=== PATIENT | male | born 1995 | race Caucasian/White ===

== ENCOUNTER 2017-09-14 19:13 | Emergency (ER) | payer BC ==
[2017-09-14 19:33] VITALS: BP 119/69; PULSE 75; O2SAT 96
--- NOTE | 2017-09-14 20:28 | ERPHSYRPT ---
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 He works outdoors on the railroad. The temperature today was in the mid 90s. He tried to drink more water around 1 PM but eventually he was unable to keep it down due to vomiting. He thinks he is significantly dehydrated. His past medical history is unremarkable. Timing/Duration: today, gradual onset, worse Severity: severe Modifying Factors: Improves With: nothing Associated Symptoms: nausea, vomiting, headaches, other (muscle cramps) Allergies/Adverse Reactions: amoxicillin Allergy (Verified 09/14/17 19:34) Home Medications: No Reportable Medications [No Reported Medications] 09/14/17 [History] - Review of Systems Constitutional: No Fever, No Chills Eyes: No Symptoms Ears, Nose, & Throat: No Symptoms Respiratory: No Cough, No Dyspnea Cardiac: No Chest Pain, No Edema, No Syncope Abdominal/Gastrointestinal: Nausea, Vomiting, No Abdominal Pain, No Diarrhea Genitourinary Symptoms: No Dysuria Musculoskeletal: Myalgias, No Back Pain, No Neck Pain Skin: No Rash Neurological: No Dizziness, No Focal Weakness, No Sensory Changes Psychological: No Symptoms Endocrine: No Symptoms Hematologic/Lymphatic: No Symptoms Immunological/Allergic: No Symptoms All Other Systems: Reviewed and Negative - Past Medical History Pertinent Past Medical History: No - Past Surgical History Past Surgical History: No Other Surgical History: mass removed from above left eyebrow, not a cyst, not malignant - Social History Smoking Status: Never smoker Exposure to second hand smoke: Yes (occasionaly) Drug Use: none Patient Lives Alone: No - Nursing Vital Signs Nursing Vital Signs: Initial Vital Signs Temperature 97.9 F 09/14/17 19:22 Pulse Rate 75 09/14/17 19:22 Blood Pressure 119/69 09/14/17 19:22 O2 Sat by Pulse Oximetry 96 09/14/17 19:22 Pain Scale Pain Intensity 6 - Physical Exam General Appearance: mild distress Eye Exam: PERRL/EOMI, eyes nml inspection Ears, Nose, Throat Exam: normal ENT inspection, TMs normal, pharynx normal, moist mucous membranes Neck Exam: normal inspection, non-tender, supple, full range of motion Respiratory Exam: normal breath sounds, lungs clear, No respiratory distress Cardiovascular Exam: regular rate/rhythm, normal heart sounds, normal peripheral pulses Gastrointestinal/Abdomen Exam: soft, normal bowel sounds, No tenderness, No mass Rectal Exam: not done Back Exam: normal inspection, normal range of motion, No CVA tenderness, No vertebral tenderness Extremity Exam: normal inspection, normal range of motion, pelvis stable Neurologic Exam: alert, oriented x 3, cooperative, normal mood/affect, nml cerebellar function, nml station & gait, sensation nml, No motor deficits Skin Exam: normal color, warm, dry, No rash Lymphatic Exam: No adenopathy SpO2 Interpretation: normal SpO2: 96 Oxygen Delivery: Room Air Ordered Tests: Active Orders 24 hr Category Date Time Status IV Insertion STAT Care 09/14/17 20:31 Active BMP Stat Lab 09/14/17 Completed CBC W DIFF Stat Lab 09/14/17 Completed Lactic Acid Stat Lab 09/14/17 20:55 Completed Medication Summary Discontinued Medications Generic Name Dose Route Start Last Admin Trade Name Yazanq PRN Reason Stop Dose Admin Sodium Chloride 1,000 mls @ 999 mls/hr 09/14/17 20:31 09/14/17 22:05 Sodium Chloride 0.9% 1000 Ml IV 09/14/17 21:31 Infused .Q1H1M STA Infusion Sodium Chloride Confirm 09/14/17 20:55 Sodium Chloride 0.9% 1000 Ml Administered 09/14/17 20:56 Dose 1,000 mls @ ud .ROUTE .STK-[facility] ONE Sodium Chloride 1,000 mls @ 999 mls/hr 09/14/17 21:41 09/14/17 23:04 Sodium Chloride 0.9% 1000 Ml IV 09/14/17 22:41 Infused .Q1H1M STA Infusion Sodium Chloride Confirm 09/14/17 21:54 Sodium Chloride 0.9% 1000 Ml Administered 09/14/17 21:55 Dose 1,000 mls @ ud .ROUTE .[facility] ONE Ondansetron HCl 4 mg 09/14/17 20:31 09/14/17 21:01 Zofran 4 Mg/2 Ml Vial IV 09/14/17 20:32 4 mg STAT ONE Administration Ondansetron HCl Confirm 09/14/17 20:55 Zofran 4 Mg/2 Ml Vial Administered 09/14/17 20:56 Dose 4 mg .ROUTE .[facility] ONE Lab/Rad Data: Laboratory Result Diagrams 09/14/17 Unknown 09/14/17 Unknown Laboratory Results 09/14/17 09/14/17 09/14/17 Range/Units Unknown Unknown 20:55 WBC 14.2 H (4.0-10.5) K/mm3 RBC 5.38 (4.1-5.6) M/mm3 Hgb 16.8 (12.5-18.0) gm/dl Hct 45.7 (42-50) % MCV 84.9 (78-100) fl MCH 31.2 (26-32) pg MCHC 36.8 H (32-36) g/dl RDW 12.4 (11.5-14.0) % Plt Count 369 (150-450) K/mm3 MPV 10.2 H (6-9.5) fl Gran % 85.2 H (36.0-66.0) % Eos # (Auto) 0.01 (0-0.5) Absolute Lymphs (auto) 1.12 (1.0-4.6) Absolute Monos (auto) 0.95 (0.0-1.3) Lymphocytes % 7.9 L (24.0-44.0) % Monocytes % 6.7 (0.0-12.0) % Eosinophils % 0.1 (0.00-5.0) % Basophils % 0.1 (0.0-0.4) % Absolute Granulocytes 12.14 H (1.4-6.9) Basophils # 0.02 (0-0.4) Sodium 139 (137-145) mmol/L Potassium 3.9 (3.5-5.1) mmol/L Chloride 91 L (98-107) mmol/L Carbon Dioxide 26 (22-30) mmol/L Anion Gap 26.4 H (5-15) MEQ/L BUN 20 (9-20) mg/dL Creatinine 2.68 H (0.66-1.25) mg/dL Estimated GFR 32.1 ML/MIN Glucose 133 H (74-106) mg/dL Lactic Acid 1.2 (0.4-2.0) Calcium 11.6 H (8.4-10.2) mg/dL Slides for Path Review YES - Progress Progress: improved Counseled pt/family regarding: lab results, diagnosis - Departure Time of Disposition: 23:07 Departure Disposition: Home Clinical Impression: Dehydration, Acute renal failure Condition: Stable Critical Care Time: No Additional Instructions: You have dehydration and acute renal failure. You were given 2 L of IV fluids in the ER. You were also given Zofran 4 mg by IV. If you so desire, you have a day off from work tomorrow. Stay well hydrated. Follow-up with your primary medical doctor as needed.
[2017-09-14] MEDS ORDERED: Zofran 4 MG/2 ML VIAL IV ONE (20:31)
[2017-09-14] MEDS ORDERED: Sodium Chloride 0.9% 1000 ML 1,000 ML IV STA ×2 (20:31→21:41)
[2017-09-14 20:45] LABS: BASOPHIL % 0.1 % (0.0-0.4); Basophil (Absolute #) 0.02 (0-0.4); Eosinophil % 0.1 % (0.00-5.0); Eosinophil (Absolute #) 0.01 (0-0.5); Granulocyte Absolute (ANC) 12.14 (1.4-6.9); Granulocytes % 85.2 % (36.0-66.0); Hematocrit 45.7 % (42-50); Hemoglobin 16.8 gm/dl (12.5-18.0); Lymphocyte (Absolute #) 1.12 (1.0-4.6); Lymphocytes % 7.9 % (24.0-44.0); Mean Cell Volume 84.9 fl (78-100); Mean Corpuscular Hemoglobin 31.2 pg (26-32); Mean Corpuscular Hgb Concent. 36.8 g/dl (32-36); Mean Platelet Volume 10.2 fl (6-9.5); Monocyte (Absolute #) 0.95 (0.0-1.3); Monocytes % 6.7 % (0.0-12.0); Platelet Count 369 K/mm3 (150-450); Red Blood Count 5.38 M/mm3 (4.1-5.6); Red Cell Distribution Width 12.4 % (11.5-14.0); White Blood Count 14.2 K/mm3 (4.0-10.5)
[2017-09-14 20:49] LABS: ANION GAP 26.4 MEQ/L (5-15); Calcium 11.6 mg/dL (8.4-10.2); Creatinine 1 2.68 mg/dL (0.66-1.25); Potassium 3.9 mmol/L (3.5-5.1)
[2017-09-14] MEDS ORDERED: Sodium Chloride 0.9% 1000 ML 1,000 ML ONE ×2 (20:55→21:54)
[2017-09-14] MEDS ORDERED: Zofran 4 MG/2 ML VIAL ONE (20:55)
[2017-09-14 22:25] LABS: Slide Review 1 YES
== END 2017-09-14 23:24 | disposition home or self-care (01) ==
LOC: ED 19:13
DX: E86.0 Dehydration (principal); N17.9 Acute kidney failure, unspecified
CPT/HCPCS: 36415; 80048; 83605; 85025; 96360; 96374; 99284; J2405